=== PATIENT | female | born 1955 | race American Indian/Alaskan Native ===

== ENCOUNTER 2020-07-13 16:36 | Emergency (ER) | payer MEDICARE ==
[2020-07-13] MEDS ORDERED: ONDANSETRON 4 MG/2 ML INJ IV ONE (16:59)
[2020-07-13] MEDS ORDERED: fentaNYL 100 MCG/2 ML INJ IV ONE ×2 (16:59→21:04)
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
[2020-07-13 18:01] LABS: Basophils % (Auto) 0.8 % (0.0-1.8); Eosinophils # (Auto) 0.1 K/mm3 (0.0-0.4); Eosinophils % (Auto) 1.7 % (0.0-4.3); Hematocrit 38.4 % (30.3-42.9); Hemoglobin 12.6 gm/dl (10.1-14.3); Lymphocytes # (Auto) 1.5 K/mm3 (1.2-5.4); Lymphocytes % (Auto) 25.2 % (13.4-35.0); Mean Corpuscular HGB Conc 33 % (30-34); Mean Corpuscular Volume 88 fl (79-97); Monocytes # (Auto) 0.6 K/mm3 (0.0-0.8); Platelet Count 354 K/mm3 (140-440); Red Blood Count 4.36 M/mm3 (3.65-5.03); Red Cell Distribution Width 15.7 % (13.2-15.2)
[2020-07-13 18:15] LABS: INR 0.88 (0.87-1.13); Partial Thromboplastin Time 31.5 Sec. (24.2-36.6)
[2020-07-13 18:17] LABS: Creatine Kinase MB 13.1 ng/mL (0.0-4.0)
[2020-07-13 18:19] LABS: Alanine Aminotransferase 64 units/L (7-56); Blood Urea Nitrogen 18 mg/dL (7-17); Calcium 9.4 mg/dL (8.4-10.2); Hemolysis Index 12
[2020-07-13 18:20] LABS: BUN/Creatinine Ratio 26
[2020-07-13] MEDS ORDERED: ACETAMINOPHEN 500 MG TAB PO ONE (19:58)
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
[2020-07-13 21:13] VITALS: BP 153/76
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
== END 2020-07-13 22:13 | disposition other institution (70) ==
LOC: ED 16:36
DX: S36.113A Laceration of liver, unspecified degree, initial encounter (principal); R51.9 Headache, unspecified; M54.5 Low back pain; M54.2 Cervicalgia; I10 Essential (primary) hypertension; E11.9 Type 2 diabetes mellitus without complications; K21.9 Gastro-esophageal reflux disease without esophagitis; Z90.710 Acquired absence of both cervix and uterus; Z90.89 Acquired absence of other organs; Z98.890 Other specified postprocedural states; Z79.4 Long term (current) use of insulin; Z79.899 Other long term (current) drug therapy; Z88.8 Allergy status to other drugs, medicaments and biological substances; V47.5XXA Car driver injured in collision with fixed or stationary object in traffic accident, initial encounter; W22.10XA Striking against or struck by unspecified automobile airbag, initial encounter; Y93.89 Activity, other specified; Y92.410 Unspecified street and highway as the place of occurrence of the external cause; Y99.8 Other external cause status
CPT/HCPCS: 36415; 70450; 71275; 72125; 74177; 80053; 82550; 82553; 84484; 85025; 85610; 85730; 86850; 86900; 86901; 93005; 96374; 99285; J2405; J3010; Q9967